=== PATIENT | male | born 1975 | race Caucasian/White ===

== ENCOUNTER 2018-11-01 07:00 | Outpatient (CLI) | payer MEDICAID, SELFPAY ==
[2018-11-01 12:55] LABS: Anion Gap 8.3 mmol/L (3-11); BUN 14 mg/dL (7-18); CO2 29.7 mmol/L (21.0-32.0); CREATININE 0.95 mg/dL (0.70-1.30); Calcium 9.2 mg/dL (8.5-10.1); Calculated LDL 111 mg/dL; Chloride 102 mmol/L (98-107); Cholesterol 181 mg/dL (50-200); Glucose 103 mg/dL (70-100); HDL Cholesterol 43 mg/dL (40-60); Sodium 140 mmol/L (136-145); Triglyceride 138 mg/dL (30-150)
== END 2018-11-01 07:20 ==
PROVIDERS: PCP Family Medicine; Visit Provider Family Medicine
DX: Z95.828 Presence of other vascular implants and grafts (principal); I25.2 Old myocardial infarction
CPT/HCPCS: 36415; 80048; 80061

== ENCOUNTER 2020-12-09 11:52 | Outpatient (REF) | payer MEDICAID, SELFPAY ==
[2020-12-09 13:35] LABS: ALT 54 U/L (16-63); AST 29 U/L (15-37); Albumin 4.4 g/dL (3.4-5.0); Alkaline Phosphatase 81 U/L (46-116); Anion Gap 8.8 mmol/L (3-11); BUN 20 mg/dL (7-18); Bilirubin, Total 0.6 mg/dL (0.2-1.0); CO2 29.2 mmol/L (21.0-32.0); CREATININE 1.1 mg/dL (0.70-1.30); Calcium 9.3 mg/dL (8.5-10.1); Calculated LDL 145 mg/dL (<100); Chloride 104 mmol/L (98-107); Cholesterol 216 mg/dL (<200); Glucose 108 mg/dL (74-106); HDL Cholesterol 48 mg/dL (40-60); Potassium 4.5 mmol/L (3.5-5.1); Sodium 142 mmol/L (136-145); Total Protein 7.6 g/dL (6.4-8.2); Triglyceride 116 mg/dL (<150)
== END 2020-12-09 11:53 | disposition home or self-care (01) ==
LOC: LBN 11:52
DX: E78.2 Mixed hyperlipidemia (principal); Z00.00 Encounter for general adult medical examination without abnormal findings
CPT/HCPCS: 80053; 80061

== ENCOUNTER 2021-07-29 00:34 | Emergency (ER) | payer MEDICAID, SELFPAY ==
[2021-07-29 00:36] VITALS: BP 144/84; PULSE 57; RESP 16; TEMP 36.3; O2SAT 99
--- NOTE | 2021-07-29 00:56 | ED.GENADUL_ITS ---
Discharge Plan Disposition Patient Disposition: HOME Condition: Stable Discharge Details Clinical Impression: Welders' keratitis of right eye Primary Care Provider: Bridget Starks ED Provider: William Lea Home Meds and New Rx's Prescriptions: New erythromycin 5 mg/gram (0.5 %) ointment 0.5 inch ophthalmic (eye) QID 7 Days Qty: 3.5 0RF Continued aspirin 325 MG tablet 325 mg PO DAILY simvastatin 40 mg tablet 40 mg PO QPM Qty: 90 4RF Discharge Instructions Instructions: Erythromycin (Into the eye), Corneal Flash [place] (ED) Additional Instructions: Please take ibuprofen over the counter. Take 600mg by mouth every 6 hours as needed for pain over the next few days. Please follow-up with [facility]. Use erythromycin ointment as discussed, apply 0.5 in ribbon to right eye 4 times a day for the next 1 week. 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 Return to the ER immediately for any worsening or new concerning symptoms. Referrals: [facility] [Outside] Medical Decision Making 46-year-old male here with Welders keratitis right eye. Normal visual acuity right eye. Tetracaine was applied for topical anesthetic to allow for examination. Patient treated with erythromycin ointment. Plan for outpatient follow-up with [facility] [place]. HPI General Mode of arrival: ambulatory . Date/Time Provider Initiated Documentation: 07/29/21 00:37 . Limitations to Documentation: no limitations . Information obtained by: patient . HPI Narrative: 46-year-old male presents with chief complaint of right eye pain. Pain started around 1130 tonight. Pain is persisted. Patient does not feel like the something inside. No modifiers. No visual changes. Patient notes earlier today he was around someone who was welding. He states he may have come within 6 feet of the welding light and was not wearing eye protection. Related Data Home Medications Medication Instructions Recorded Confirmed aspirin 325 mg tablet 325 mg PO DAILY 08/18/13 07/29/21 simvastatin 40 mg tablet 40 mg PO QPM #90 tabs 12/09/20 07/29/21 erythromycin 5 mg/gram (0.5 %) eye 0.5 inch ophthalmic (eye) QID 7 07/29/21 ointment days #3.5 grams Previous Rx's Medication Instructions Recorded simvastatin 40 mg tablet 40 mg PO QPM #90 tabs 12/09/20 erythromycin 5 mg/gram (0.5 %) eye 0.5 inch ophthalmic (eye) QID 7 07/29/21 ointment days #3.5 grams Allergies Allergy/AdvReac Type Severity Reaction Status Date / Time No Known Allergies Allergy Verified 07/29/21 00:39 General Stated Complaint: EyeProblem [place]: 4 Review of Systems Constitutional Constitutional: Denies headache(s) Eyes Eyes: Reports as per HPI ENT Ears, Nose, Mouth, and Throat: Denies headache(s) Neurologic Neurologic: Denies headache(s) PFSH All Active Problems Welders' keratitis of right eye (Acute) Hyperlipidemia (Acute) History of intravascular stent placement (Acute) ST elevation myocardial infarction involving left anterior descending (LAD) coronary artery (Chronic 08/28/08) Stent placement Cerebrovascular accident (CVA) due to embolism (Chronic 08/11/13) Surgical History Stent placement 2008; [facility] [place] RX STENT 5.0 X 6MM Family History Mother Hypertension Hyperlipidemia Father , AGE 54 Heart attack Maternal Grandfather , AGE 56 Heart attack Paternal Grandfather , AGE 85 Heart attack Maternal Grandmother , AGE 92 Heart disease Paternal Grandmother , AGE 77 Diabetes Son No problems noted. Son No problems noted. Son No problems noted. Daughter No problems noted. Daughter No problems noted. Daughter No problems noted. Social History Smoking/Tobacco Use Status: Never Second Hand Exposure: No Smoking risk assessment performed?: Yes Alcohol Intake: never Drug use: Never Substance use type: does not use Counseling given: No Counseling provided: none Caregiver/Support person: No Household members: spouse and children Housing: house Communication Needs: None Do you need help understanding health information?: Never current occupation: [employer] Pets and animals: No Sexually active: Yes Do you think of yourself as: straight/heterosexual Current gender identity: female What is your relationship status?: How often do you talk on the phone with friends or family?: three or more times per week How often do you get together with friends or relatives?: three or more times per week How often do you attend jehovah's witness or worship services?: decline to answer Do you belong to any clubs or organized social groups?: decline to answer Panel score (0-1 are the most socially isolated patients): 2 What type of physical activity do you participate in: none Frequency: does not exercise Eli/Faith: No preference Special eli needs: No Seatbelt use: sometimes Helmet use: No Drive intox or ride w/intox patient transportation driver: No Exam Const General: cooperative Orientation: alert and awake Eyes Periorbital: periorbital findings normal Eyelids: eyelids normal Sclera: sclerae normal Cornea: corneas abnormal on the right fluorescein used (Under Streeter lamp) and diffuse punctate uptake (superficial ) EOM: EOM intact bilaterally Direct ophthalmoscopy: no papilledema Course Vital Signs Vital signs: Vital Signs Temperature 36.3 C L 07/29/21 00:36 Pulse 57 L 07/29/21 00:36 Respiratory Rate 16 07/29/21 00:36 Blood Pressure 144/84 H 07/29/21 00:36 Pulse Oximetry 99 07/29/21 00:36 Temperature 36.3 C L 07/29/21 00:36 Pulse 57 L 07/29/21 00:36 Respiratory Rate 16 07/29/21 00:36 Respiratory Effort Non-Labored 07/29/21 00:38 Blood Pressure 144/84 H 07/29/21 00:36 Pulse Oximetry 99 07/29/21 00:36 Oxygen Delivery Method Cpap 07/29/21 00:36 Pain Level 7 07/29/21 00:36
[2021-07-29] MEDS: Balanced Salt Solution 15 ML BTL OP (01:09)
[2021-07-29] MEDS: Fluorescein STRIPS 100/BOX 1 MG OP (01:10)
[2021-07-29] MEDS: Tetracaine 0.5% 4 ML BTL OP (01:10)
[2021-07-29] MEDS: Erythromycin Ophth Oint 3.5 GM TUBE OP (01:10)
== END 2021-07-29 01:09 | disposition home or self-care (01) ==
PROVIDERS: Emergency Provider Student in an Organized Health Care Education/Training Program
DX: H16.131 Photokeratitis, right eye (principal); W89.8XXA Exposure to other man-made visible and ultraviolet light, initial encounter
CPT/HCPCS: 99283